=== PATIENT | female | born 1970 | race Caucasian/White ===

== ENCOUNTER 2020-07-15 10:30 | Day surgery (SDC) | payer BC ==
[~2020-07-15] VITALS: Ht 167.6 cm; Wt 94.1 kg
[2020-07-15] MEDS ORDERED: PROTONIX 40MG T40 MG PO (11:04)
[2020-07-15 11:50] VITALS: BP 126/88; PULSE 58; TEMP 97.1
[2020-07-15] MEDS ORDERED: MOTRIN 600600 MG/TAB PO (15:16)
[2020-07-15] MEDS ORDERED: NORCO 325 MG-51 TAB PO (15:16)
[2020-07-15 15:26] VITALS: TEMP 98.2
[2020-07-15 16:05] VITALS: BP 143/82; PULSE 79
--- NOTE | 2020-07-15 16:05 | NUR ---
Patient returns to room 5 per cart from PACU accompanied by Deanna RN and is awake and alert. Becomes nauseated in the room. Phenergan 6.25mg IV given by Deanna GRUBER. IV fluids infusing. Temp 97.6 and sats 100% on 2L. Siderails up x2 and call light in reach. Spouse in room. Allowed to rest.
[2020-07-15 16:20] VITALS: BP 136/78; PULSE 63
--- NOTE | 2020-07-15 16:20 | NUR ---
Resting with eyes closed when not disturbed.
[2020-07-15 16:35] VITALS: BP 137/76; PULSE 50
--- NOTE | 2020-07-15 16:35 | NUR ---
Awake and denies pain or nausea. Sipping on Sprite. Oxygen removed. Sats remain 100%.
[2020-07-15 16:50] VITALS: BP 133/88; PULSE 81
--- NOTE | 2020-07-15 16:50 | NUR ---
Eating crackers. Continues to deny nausea.
--- NOTE | 2020-07-15 17:05 | NUR ---
Assisted up to the bathroom and gait is steady. Able to void and returns to room. Complains of mild soreness. [facility] has 90 minute car ride home.
--- NOTE | 2020-07-15 17:10 | NUR ---
Medicated with [place] 5mg one tab in preparation for discharge and car ride home. Tolerated Sprite and saltine crackers.
--- NOTE | 2020-07-15 17:15 | NUR ---
Dismissal instructions given and voices understanding of these. Instructed that scripts will be ready at [facility] in [place].
--- NOTE | 2020-07-15 17:22 | NUR ---
Patient dismissed to home driven by spouse and taken to the front door per wheelchair and assisted into vehicle by this RN with all instructions in hand.
== END 2020-07-15 17:22 | disposition home or self-care (01) ==
LOC: SDCO 10:30
DX: K80.10 Calculus of gallbladder with chronic cholecystitis without obstruction (principal); K21.9 Gastro-esophageal reflux disease without esophagitis; F17.210 Nicotine dependence, cigarettes, uncomplicated; Z79.899 Other long term (current) drug therapy; Z20.822 Contact with and (suspected) exposure to COVID-19; Z83.3 Family history of diabetes mellitus
CPT/HCPCS: J0690; J1100; J1170; J1885; J2175; J2405; J2550; J2704; J7120